=== PATIENT | female | born 1960 | race Caucasian/White ===

== ENCOUNTER 2016-08-11 16:08 | Emergency (ER) | payer OTHER ==
--- NOTE | ~2016-08-11 | EKG ---
PATIENT: CK JEREZ UNIT #: [id number] Ventricular Rate: 86 BPM Atrial Rate: 86 BPM P-R Interval: 182 ms QRS Duration: 104 ms Q-T Interval: 372 ms QTC Calculation(Bezet): 445 ms P [place]: 47 degrees Calculated R [place]: -73 degrees Calculated T [place]: 41 degrees Diagnosis Line: Normal sinus rhythm Diagnosis Line: Left axis deviation Diagnosis Line: Inferior infarct , age undetermined Diagnosis Line: Anterolateral infarct , age undetermined Diagnosis Line: Abnormal ECG Diagnosis Line: No previous ECGs available Diagnosis Line: Confirmed by JAJA ECHOLS MD ([id number]) on Diagnosis Line: 08/14/2016 8:36:11 AM INTERPRETING MD: KINZA SUH
--- NOTE | ~2016-08-11 | CT16 ---
[facility] A Service of [facility] RADIOLOGY TEXT RESULTS PATIENT: CK JEREZ LOCATION: SED : 56 UNIT #: [id number] AGE: [address]: ELOISA SANCHEZ SEX: F ORDER DR: [id number] [place] [id number] E MR#: [id number] Acc #: [id number] NAME: CK JEREZ. : 1960 SEX: F STUDY DATE/TIME: 08/11/2016 18:21 UNIT: SED ROOM: STUDY DESCRIPTION: CT Angio Chest for PE Attending Physician: Alexsandra) Eloisa Sanchez Ordering Physician: Lucho Sanchez Primary Care Physician: Rohith Ramirez M.D. MEDICAL IMAGING REPORT This report is preliminary unless electronic signature is present. EXAM CTA chest with contrast, PE protocol; 08/11/2016. HISTORY 56-year-old female with chest pain and shortness of air for 1 month. COMPARISON None. TECHNIQUE Helical scan performed through the chest following the timed bolus administration of IV contrast per PE protocol. Coronal, 3-D, MIP reconstructions. Sagittal reformatted images. This CT exam was performed with one or more of the following radiation dose reduction techniques: automatic exposure control, adjustment of mA and/or kV according to patient size, and iterative reconstruction. FINDINGS There is adequate opacification of the pulmonary arteries with no filling defects noted. Thoracic aorta normal in course and caliber without dissection. Heart size normal. No pericardial effusion. Prominent right thyroid nodule incidentally noted. No pleural effusions. No pneumothorax. No parenchymal infiltrates. Scanning through the upper abdomen demonstrates multiple mildly prominent upper abdominal lymph nodes. These are nonspecific and may be reactive. Follow up is suggested. No acute bony abnormality. IMPRESSION 1. Negative for pulmonary emboli. [facility] A Service [facility] RADIOLOGY TEXT RESULTS PATIENT: CK JEREZ LOCATION: SED : 56 UNIT #: [id number] AGE: [address]: ELOISA SANCHEZ SEX: F ORDER DR: 2. Negative for thoracic aortic aneurysm/dissection. 3. No acute pulmonary process. 4. Multiple mildly prominent upper abdominal lymph nodes incidentally noted. These are nonspecific and may be reactive. Further characterization with nonemergent CT scan of the abdomen and pelvis may be considered if clinically warranted. 5. Prominent right thyroid nodule. Further evaluation with nonemergent right thyroid ultrasound is also suggested. Dictated by... Leo Wong M.D. THIS IS AN ELECTRONICALLY VERIFIED REPORT Leo Wong M.D. at 08/12/2016 6:16 PM FUNMILAYO/rebecca TD: 08/11/2016 22:02 JOB #: [id number] MEDICAL IMAGING REPORT Page 1 of 1
--- NOTE | ~2016-08-11 | CR63 ---
[facility] A Service of [facility] & [facility] RADIOLOGY TEXT RESULTS PATIENT: CK JEREZ LOCATION: SED : 56 UNIT #: [id number] AGE: [address]: ELOISA SANCHEZ SEX: F ORDER DR: [id number] [place] [id number] E MR#: [id number] Acc #: [id number] NAME: CK JEREZ : 1960 SEX: F STUDY DATE/TIME: 08/11/2016 17:27 UNIT: SED ROOM: STUDY DESCRIPTION: CR Chest 2 View Attending Physician: (Lucho) Eloisa Sanchez Ordering Physician: Alexsandra) Eloisa Sanchez Primary Care Physician: Rohith Ramirez M.D. MEDICAL IMAGING REPORT This report is preliminary unless electronic signature is present. EXAM Two-view chest; 08/11/2016. HISTORY 56-year-old female with shortness of air for 1 month. COMPARISON Chest, 07/05/2007. FINDINGS Two views of the chest demonstrate clear lungs. No pleural effusion or pneumothorax. Heart size and mediastinum are normal. Pulmonary vasculature normal. IMPRESSION No acute cardiopulmonary findings. Dictated by... Leo Wong M.D. THIS IS AN ELECTRONICALLY VERIFIED REPORT Leo Wong M.D. at 08/12/2016 6:13 PM FUNMILAYO/rebecca TD: 08/11/2016 21:11 JOB #: [id number] MEDICAL IMAGING REPORT Page 1 of 1
[~2016-08-11 16:08] MED LIST: CIPRO PO; COZAAR PO; HUMALOG100 U/ML SUBQ; LANTUS100 U/ML
[2016-08-11] MEDS ORDERED: ALPRAZOLAM (16:11)
[2016-08-11] MEDS ORDERED: AMBIEN (16:11)
[2016-08-11] MEDS ORDERED: LORTAB 10-3251 EACH (16:11)
[2016-08-11] MEDS ORDERED: EFFEXOR (16:12)
[2016-08-11] MEDS ORDERED: KCL (16:12)
[2016-08-11] MEDS ORDERED: PREMARIN (16:12)
[2016-08-11] MEDS ORDERED: ALBUTEROL17 GM (16:18)
[2016-08-11 17:02] LABS: POC - CKMB 1.3 ng/mL (0.0-7.9); POC - TROPONIN <0.05 ng/mL (<=0.05)
[2016-08-11 17:27] LABS: BASOPHIL% 0.5 % (0-2.5); EOSINOPHIL# 0.2 X10e3 (0-0.7); EOSINOPHIL% 2.2 % (0.0-7.0); HEMATOCRIT 43.2 % (35.0-45.0); HEMOGLOBIN 14.4 gm/dL (12.0-16.0); LYMPHOCYTE# 1.5 X10e3 (1.0-3.5); LYMPHOCYTE% 19.4 % (17.0-45.0); MEAN CELL VOLUME 89.1 FL (83-96); MEAN CORPUSCULAR HEMOGLOBIN 29.7 PG (28-34); MEAN CORPUSCULAR HGB CONC 33.4 g/dL (30-36); MEAN PLATELET VOLUME 10.2 FL (6.5-11.5); MONOCYTE# 0.5 X10e3 (0-1.0); NEUTROPHIL# 5.4 X10e3 (1.5-7.1); NEUTROPHIL% 70.9 % (40-75); PLATELET COUNT 176 X10e3 (140-420); RED BLOOD COUNT 4.85 X10e (3.90-5.30); RED CELL DISTRIBUTION WIDTH 12.7 % (11.0-15.5); WHITE BLOOD COUNT 7.6 X10e3 (4.0-10.5)
[2016-08-11 17:28] LABS: DIFF IND NO
[2016-08-11 17:36] LABS: ALBUMIN SERUM 4.1 g/dL (3.5-5.0); BILIRUBIN,TOTAL 0.3 mg/dL (0.2-2.0); CALCIUM SERUM 9.1 mg/dL (8.4-10.2); GLOM FILT RATE Estimated 62.1 mL/min (>60); POTASSIUM 3.9 mmol/L (3.5-5.1); PROTEIN TOTAL SERUM 7.8 g/dL (6.0-8.3)
== END 2016-08-11 19:58 | disposition left against medical advice (07) ==
LOC: SED 16:08
PROVIDERS: Physician Assistant
DX: R06.02 Shortness of breath (principal); E11.9 Type 2 diabetes mellitus without complications; I10 Essential (primary) hypertension; J45.909 Unspecified asthma, uncomplicated; I48.91 Unspecified atrial fibrillation; F41.8 Other specified anxiety disorders; F17.200 Nicotine dependence, unspecified, uncomplicated; Z88.0 Allergy status to penicillin; Z79.4 Long term (current) use of insulin; Z79.899 Other long term (current) drug therapy
CPT/HCPCS: 36415; 71020; 71275; 80053; 82553; 83880; 84484; 85025; 93005; 94640; 96374; 99285; J2405; Q9967